=== PATIENT | male | born 1990 | race American Indian/Alaskan Native ===

== ENCOUNTER 2016-12-21 00:47 | Emergency (ER) | payer OTHER ==
[2016-12-21] MEDS ORDERED: MUCINEX ER PO ONE (03:12)
[2016-12-21] MEDS ORDERED: TORADOL IM ONE (03:12)
[2016-12-21] MEDS ORDERED: TESSALON PERLES PO ONE (03:12)
[2016-12-21] MEDS ORDERED: TYLENOL PO ONE (03:13)
--- NOTE | 2016-12-21 03:19 | Emergency Department Report ---
HPI - General Chief Complaint: Upper Respiratory Infection Time Seen by Provider: 12/21/16 02:00 - HPI HPI: The patient is a 26-year-old male presents for evaluation of cough. The patient reports cough for the past 2 days, productive of yellow sputum, and associated with nasal congestion, generalized myalgias, and headache, 8/10 in severity, aching in quality, exacerbated with coughing. The patient denies fever, chest pain, hemoptysis, dyspnea, stridor, dysphonia, sore throat, rash, paresthesias, motor deficit, or other focal neurological deficit. ED Past Medical Hx - Past Medical History Previous Medical History?: No - Surgical History Past Surgical History?: Yes Additional Surgical History: TONSILECTOMY - Social History Smoking Status: Never Smoker Substance Use Type: None ED Review of Systems ROS: Stated complaint: FLU SX Other details as noted in HPI Constitutional: denies: fever ENT: denies: throat or neck pain Respiratory: reports cough denies: shortness of breath Cardiovascular: denies: chest pain Endocrine: denies unexplained weight loss or gain Gastrointestinal: denies: abdominal pain, nausea Genitourinary: denies: dysuria Musculoskeletal: denies: leg swelling Skin: denies: rash Neurological: reports headache Hematological/Lymphatic: denies: easy bleeding or easy bruising Psych: denies sadness or hopelessness Physical Exam - Physical Exam Vital Signs: Vital Signs 12/21/16 01:12 Temperature 98.0 F Pulse Rate 80 Respiratory 20 Rate Blood Pressure 123/81 O2 Sat by Pulse 98 Oximetry Physical Exam: General: well-nourished, well-developed, no acute distress Head: Normocephalic, atraumatic Eyes: normal sclera ENT: Mucous membranes are pink and moist, bilateral nasal congestion present, no purulent drainage or discharge Neck: trachea midline, neck supple, No neck stiffness, no cervical adenopathy Respiratory: Breath sounds equal bilaterally, no wheezing, rales, or rhonchi Cardio: S1 and S2 present, no murmurs, rubs, gallops, capillary refill is brisk Abdomen: Normoactive bowel sounds, soft abdomen, no rigidity, no guarding or rebound tenderness Musc: No pitting edema Skin: No rash Neuro: alert oriented x4, normal cognition, speech normal, PERRL, EOM intact, no facial drooping, no uvula or tongue deviation on protrusion, no deficit with rotation of neck or shoulder shrug, no obvious gross motor deficit in the upper or lower extremities with flexion or extension at the shoulder, elbow, wrist, hip, knee, or ankle bilaterally, no obvious gross sensation deficit to crude touch or 2 pt discrimination, 2+ symmetric reflexes on DTR testing, no dysmetria , dysdiadochokinesia, no coordination deficit with zzhvyc-he-fefx or heel-to- raygoza testing,, Babinski downgoing, romberg negative, patient able to to ambulate without abnormal gait Psych: Normal affect ED Course Vital Signs 12/21/16 01:12 Temperature 98.0 F Pulse Rate 80 Respiratory 20 Rate Blood Pressure 123/81 O2 Sat by Pulse 98 Oximetry ED Medical Decision Making - Medical Decision Making The patient was seen and examined by myself. The patient is placed on a design maker and continuous pulse ox. On initial evaluation, the patient was found to be in no distress. As there are no neuro deficits or other findings on examination concerning for acute intracranial disease process, a CAT scan of the head will not be obtained at this time. Evaluation orders were placed. The patient is given Tessalon Perles for cough, I'm Toradol for his pain, and guaifenesin for congestion. X-ray of the chest is negative for acute cardiopulmonary disease process. The patient was reevaluated and reported that their symptoms were markedly improved. The patient is stable for discharge with outpatient follow-up. The patient is given follow-up and return instructions. The patient expressed understanding and agreed with the plan. The patient is discharged in stable condition. Critical care attestation.: If time is entered above; I have spent that time in minutes in the direct care of this critically ill patient, excluding procedure time. ED Disposition Clinical Impression: Upper respiratory infection, acute, Acute non intractable tension-type headache , Myalgia Disposition: - TO HOME OR SELFCARE Is pt being admited?: No Does the pt Need Aspirin: No Condition: Stable Instructions: Viral Syndrome (ED), Upper Respiratory Infection (ED), Musculoskeletal Pain (ED), Acute Headache (ED) Referrals: PRIMARY CARE, [Primary Care Provider] - 3-5 Days Time of Disposition: 03:20
[2016-12-21 03:52] VITALS: BP 121/80
--- NOTE | 2016-12-21 04:30 | XRay Report ---
FINAL REPORT PROCEDURE: XR CHEST ROUTINE 2V TECHNIQUE: PA and lateral chest radiographs were obtained. CPT 00112 HISTORY: dyspnea COMPARISON: No prior studies are available for comparison. FINDINGS: Heart: Normal. Mediastinum/Vessels: Normal. Lungs/Pleural space: Normal. Bony thorax: No acute osseous abnormality. Other: IMPRESSION: Normal examination.
== END 2016-12-21 03:49 | disposition home or self-care (01) ==
LOC: ED 00:47
DX: J06.9 Acute upper respiratory infection, unspecified (principal); G44.209 Tension-type headache, unspecified, not intractable; M79.1 Myalgia
CPT/HCPCS: 71020; 96372; 99284; J1885